=== PATIENT | female | born 1995 | race Caucasian/White ===

== ENCOUNTER 2016-05-13 19:46 | Emergency (ER) | payer OTHER ==
[2016-05-13] MEDS ORDERED: IBUPROFEN 200 MG TAB PO ONE (20:00)
[2016-05-13] MEDS ORDERED: IBUPROFEN 600 MG TAB PO ONE (20:02)
--- NOTE | 2016-05-13 20:02 | EDPHY ---
H & P Stated Complaint: R hand pain HPI/ROS: CHIEF COMPLAINT: Right hand injury HISTORY OF PRESENT ILLNESS: The patient is a 21 y/o female complaining of right hand pain secondary to a fall while dancing last night. She tripped and fell on her right hand and now complains of pain near her 4th and 5th knuckles of her right hand. She denies weakness or paresthesias or other injuries. She has not tried anything to decrease her pain or to manage the injury. She is otherwise healthy. REVIEW OF SYSTEMS: A ten point review of systems was performed and is negative with the exception of the items mentioned in the HPI. Source: Patient Exam Limitations: No limitations - Personal History LMP (Females 10-55): 1-7 Days Ago Current Tetanus/Diphtheria Vaccine: Yes Current Tetanus Diphtheria and Acellular Pertussis (TDAP): Yes - Medical/Surgical History PMH: PMH includes: 1. Heart murmur 2. Asthma Hx Asthma: Yes Hx Chronic Respiratory Disease: No Hx Diabetes: No Hx Cardiac Disease: Yes Hx Renal Disease: No Hx Cirrhosis: No Hx Alcoholism: No Hx HIV/AIDS: No Hx Splenectomy or Spleen Trauma: No Other PMH: AORTIC STENOSIS, asthma, psoriasis - Social History Smoking Status: Never smoked Additional Social History: [employer] student. Nonsmoker. - Physical Exam Exam: General Appearance: Alert. Vital signs reviewed. A focused examination was performed. Lungs: CTA Heart: RRR Skin: Warm and dry, no rashes on exposed skin, normal color. No lacerations or abrasions. Extremities: Tenderness and ecchymosis over right 4th and 5th MCP joints. Full flexion/extension of all digits on right. No wrist pain, FAROM right wrist. Sensation intact to LT over right hand. Pulse: 2+ radial pulse. Neurological: Alert and oriented. Moving all four extremities easily and equally. Psychiatric: Normal affect. Constitutional: Initial Vital Signs Temperature (C) 36.8 C 05/13/16 19:53 Heart Rate 85 05/13/16 19:53 Respiratory Rate 16 05/13/16 19:53 Blood Pressure 120/81 H 05/13/16 19:53 O2 Sat (%) 95 05/13/16 19:53 O2 Delivery Mode Room Air Allergies/Adverse Reactions: No Known Allergies Allergy (Unverified 05/13/16 19:53) Medical Decision Making ED Course/Re-evaluation: Study: Right hand x-ray Indication: Pain, trauma Results: Right hand x-ray was obtained. The results of the study are no fracture. The study was read by the radiologist, Dr. Root. I viewed the images myself on the PACS system. No evidence of fracture or dislocation on XRay. I do not recommend splinting. She has bruising over knuckles of right hands--I am diagnosing contusion and recommending ice and elevation along with OTC pain medicines. - Data Points Medications Given: Discontinued Medications Ibuprofen (Motrin) 600 mg PO EDNOW ONE Stop: 05/13/16 20:01 Last Admin: 05/13/16 20:00 Dose: 600 mg Departure - Departure Disposition: Home, Routine, Self-Care Clinical Impression: Hand contusion Qualifiers: Encounter type: initial encounter Laterality: right Qualified Code(s): S60.221A - Contusion of right hand, initial encounter Condition: Good Instructions: Hand Sprain (ED) Additional Instructions: 1. Apply ice to sore areas. 2. Use Tylenol and ibuprofen as needed for pain for the next 3-4 days. 3. Follow up with your primary care provider for symptoms not improved over the next week. 4. Return to the ED for severe pain, weakness, or numbness in your hand. Referrals: MISHA LUNDY [Other] - As per Instructions Report Scribed for: Lorraine Lara Report Scribed by: Colette Mendez Date of Report: 05/13/16 Time of Report: 20:09 Physician Review and Approval Statement: 05/16/16 12:36 Portions of this chart were entered by a spanish medical interpreter. I personally performed the history, medical decision making, and exam. I have reviewed the chart and agree with the documentation, as evidenced by my signature.
[2016-05-13 21:22] VITALS: BP 124/69; PULSE 75; RESP 20; TEMP 97.7; O2SAT 96
== END 2016-05-13 21:22 | disposition home or self-care (01) ==
DX: S60.221A Contusion of right hand, initial encounter (principal); J45.909 Unspecified asthma, uncomplicated; W01.0XXA Fall on same level from slipping, tripping and stumbling without subsequent striking against object, initial encounter

== ENCOUNTER 2016-11-16 14:08 | Emergency (ER) | payer OTHER ==
[2016-11-16 14:12] VITALS: BP 117/79; PULSE 98; RESP 18; TEMP 98.4; O2SAT 100
--- NOTE | 2016-11-16 14:17 | EDPHY ---
H & P Time Seen by Provider: 11/16/16 14:15 HPI/ROS: CHIEF COMPLAINT: left foot and ankle pain HISTORY OF PRESENT ILLNESS: 21-year-old female with prior history of left ankle sprain complaining of acute left foot, ankle, proximal fibula and tibia pain after she was dancing last night and rolled her foot. She is able to bear weight albeit with pain. Mild paresthesia to her left great toe. Intact skin. Positive ecchymosis. PHYSICAL EXAM (Prior to examination, patient consented to physical exam, hands were washed and my usual and customary physical exam procedures followed) 1) GENERAL: Well-developed, well-nourished, alert and oriented. Appears to be in no acute distress. 2) HEAD: Normocephalic 3) HEENT: Pupils equal, round, reactive to light bilaterally. 4) LUNGS: Breathing comfortably. 5) MUSCULOSKELETAL: Tender to palpation fibular head, lateral ankle, dorsal midfoot with noted ecchymosis to the dorsal midfoot. No deformity. Knee nontender. .5th MT nontender negative Knapp test, compartments soft 6) SKIN: intact. Positive ecchymosis. 7) VASCULAR: DP,PT pulses and cap refill present and brisk DIFFERENTIAL DIAGNOSIS: in no particular order including but not limited to fracture, sprain, compartment syndrome Procedure: Splint A Sean boot splint was applied by ER vibration technician. After application of the splint I returned and re-examined the patient. The splint was adequately immobilizing the joint and distal to the splint the patient's circulation and sensation were intact. Patient shows no signs of compartment syndrome. Was given orthopedic precautions. Smoking Status: Never smoked Constitutional: Initial Vital Signs Temperature (C) 36.9 C 11/16/16 14:11 Heart Rate 98 11/16/16 14:11 Respiratory Rate 18 11/16/16 14:11 Blood Pressure 117/79 11/16/16 14:11 O2 Sat (%) 100 11/16/16 14:11 O2 Delivery Mode Room Air Allergies/Adverse Reactions: No Known Allergies Allergy (Unverified 05/13/16 19:53) Home Medications: Medication Instructions Recorded NK [No Known Home Meds] 11/16/16 MDM/Departure - [facility] Imaging Results: Imaging Impressions Foot X-Ray 11/16/16 14:13 Impression: Negative. 2. Left Ankle, 3 views History: Rolled ankle last night dancing, pain Findings: No fracture, dislocation or arthritis is identified. Impression: Negative 3. Left Foot, 3 views History: Pain post fall last night Findings: No fracture or dislocation is identified. Impression: Negative. Ankle X-Ray 11/16/16 14:18 Impression: Negative. 2. Left Ankle, 3 views History: Rolled ankle last night dancing, pain Findings: No fracture, dislocation or arthritis is identified. Impression: Negative 3. Left Foot, 3 views History: Pain post fall last night Findings: No fracture or dislocation is identified. Impression: Negative. Tibia/Fibula X-Ray 11/16/16 14:18 Impression: Negative. 2. Left Ankle, 3 views History: Rolled ankle last night dancing, pain Findings: No fracture, dislocation or arthritis is identified. Impression: Negative 3. Left Foot, 3 views History: Pain post fall last night Findings: No fracture or dislocation is identified. Impression: Negative. Images reviewed by myself Imaging: I viewed and interpreted images myself ED Course/Re-evaluation: Re-evaluation with serial exams. Soft compartments. No evidence of neurovascular compromise. Usual and customary orthopedic precautions and instructions provided. Follow up with Orthopedics. She feels comfortable being discharged. Tylenol and Motrin for discomfort. - Depart Disposition: Home, Routine, Self-Care Clinical Impression: Left ankle sprain Qualifiers: Encounter type: initial encounter Involved ligament of ankle: other ligament Qualified Code(s): S93.492A - Sprain of other ligament of left ankle, initial encounter Sprain of left foot Qualifiers: Encounter type: initial encounter Qualified Code(s): S93.602A - Unspecified sprain of left foot, initial encounter Condition: Good Instructions: Ankle Sprain (ED), Foot Sprain (ED) Additional Instructions: Adult Pain & Fever Control: We recommend Acetaminophen (Tylenol) and Ibuprofen (Motrin,Advil) for pain and fever control. When fever is high or pain severe, both drugs can be used at the same time, but at different intervals. Please note the time differences. Your dose is: Acetaminophen 650mg every 4 to 6 hours Ibuprofen 600mg every 6 hours with food OR Note: do not take Acetaminophen with Hydrocodone (Vicodin, Lortab) or Oycodone (Percocet). These medications also contain Acetaminophen. No more than 3000mg of Acetaminophen should be taken in 24 hours (for an adult). Return to the ER immediately if you experience discoloration, have worsening pain, numbness, tingling, or any other symptoms that concern you. If you received x-rays in the emergency department today, be advised, that ligamentous , tendon, muscular, and other non-bony injury cannot be fully ruled out. Try to keep your affected extremity elevated above the level of your chest, and keep cold packs on the affected area, for the next 48 hours. Referrals: Mike Valdes MD [Medical Doctor] - 5-7 days, call for appt.
== END 2016-11-16 14:49 | disposition home or self-care (01) ==
DX: S93.492A Sprain of other ligament of left ankle, initial encounter (principal); S93.602A Unspecified sprain of left foot, initial encounter; X58.XXXA Exposure to other specified factors, initial encounter; Y99.8 Other external cause status; Y93.41 Activity, dancing
CPT/HCPCS: L4386

== ENCOUNTER 2016-12-15 10:05 | Emergency (ER) | payer OTHER ==
[2016-12-15 10:11] VITALS: RESP 18
[2016-12-15] MEDS ORDERED: ONDANSETRON 4 MG/2 ML VIAL IVP ONE (11:33)
[2016-12-15] MEDS ORDERED: NS 1,000 ML IV ONE (11:33)
[2016-12-15] MEDS ORDERED: predniSONE 20 MG TAB PO ONE (11:33)
--- NOTE | 2016-12-15 11:37 | EDPHY ---
H & P Stated Complaint: Cough, Chest Pressure, Nausea/Vomiting Source: Patient Exam Limitations: No limitations - Personal History LMP (Females 10-55): 8-14 Days Ago Current Tetanus Diphtheria and Acellular Pertussis (TDAP): Yes - Medical/Surgical History Hx Asthma: Yes Hx Chronic Respiratory Disease: No Hx Diabetes: No Hx Cardiac Disease: Yes Hx Renal Disease: No Hx Cirrhosis: No Hx Alcoholism: No Hx HIV/AIDS: No Hx Splenectomy or Spleen Trauma: No Other PMH: AORTIC STENOSIS, asthma, psoriasis - Social History Smoking Status: Never smoked Time Seen by Provider: 12/15/16 11:34 HPI/ROS: HPI: This is a 21 female presents with Chief Complaint: Cough Location: Chest Quality: Cough Duration: 2-4 days Signs and Symptoms: No fever, no chills, + fatigue, + productive cough, + nausea, no vomiting, no abdominal pain, no dysuria, no headache, no sore throat , no neck stiffness, no wheezing Timing: Daily Severity: Moderate Context: Patient presents with complaints of productive cough green sputum over the last 2-4 days accompanied by fatigue and nausea. She has a history of aortic stenosis followed by her foot roentgenologist [facility]. She denies chest pain/shortness of breath/wheezing. + exercise-induced asthma. She denies any wheezing/lower extremity edema. Modifying Factors: Took Tylenol this morning Comment: ROS: see HPI Constitutional: No fever, no chills, no weight loss Eyes: No blurred vision Respiratory: No shortness of breath, + cough Cardiovascular: No chest pain Gastrointestinal: No nausea, no vomiting, no diarrhea Genitourinary: No dysuria Extremities: No myalgias Neurologic: No weakness, no numbness Skin: No rashes Hematologic: No bruising, no bleeding MEDICAL/SURGICAL/SOCIAL HISTORY: Medical history: Aortic stenosis Surgical history: Tonsillectomy and adenoidectomy Social history: College student, originally from [facility] CONSTITUTIONAL: Young Adult pleasant white female, awake and alert, no obvious distress HEENT: Atraumatic and normocephalic, PERRL, EOMI. Tympanic membranes clear. Oropharynx clear, no exudate and moist pink mucosa. Airway patent. No lymphadenopathy. No meningismus. Cardiovascular: Normal S1/S2, regular rate, regular rhythm, with systolic murmur , no rub or gallop. PULMONARY/CHEST: Symmetrical and nontender. Clear to auscultation bilaterally. Good air movement. No accessory muscle usage. ABDOMEN: Soft, nondistended, nontender, no rebound, no guarding, no peritoneal signs, no masses or organomegaly. No CVAT. EXTREMITIES: 2/2 pulses, no deformities, no clubbing, no cyanosis or edema. NEUROLOGICAL: no focal neuro deficits. GCS 15. SKIN: Warm and dry, no erythema. no rash. Good capillary refill. (Ashley Whitlock) Constitutional: Initial Vital Signs Temperature (C) 36.7 C 12/15/16 10:09 Heart Rate 92 12/15/16 10:09 Respiratory Rate 18 12/15/16 10:09 Blood Pressure 140/100 H 12/15/16 10:09 O2 Sat (%) 98 12/15/16 10:09 O2 Delivery Mode Room Air Allergies/Adverse Reactions: No Known Allergies Allergy (Unverified 05/13/16 19:53) Home Medications: Medication Instructions Recorded Ondansetron Odt [Zofran Odt 4 mg 4 mg PO Q4 PRN #12 tab 12/15/16 (*)] predniSONE [predniSONE TAPER] 10 mg PO DAILY 6 Days ea 12/15/16 Medical Decision Making ED Course/Re-evaluation: Chest x-ray, IV fluids, oral medications ordered Afebrile, no signs of hypoxia/wheezing/asthma exacerbation Given 1 L normal saline, IV Zofran, p.o. prednisone 60 mg Low risk criteria for pulmonary embolism Chest x-ray my read shows no erick opacity. No signs of SIRS or sepsis. No indication for antibiotics (Ashley Whitlock) Differential Diagnosis: Shortness of breath including but not limited to pulmonary infectious process, pulmonary embolus and bronchitis. (Ashley Whitlock) Other Provider: The patient was evaluated and managed by the Physician It Project Manager/ Nurse Practitioner. My co-signature indicates that I have reviewed this chart and I agree with the findings and plan of care as documented. I am the secondary supervising physician. (Adriana Perez) - Data Points Medications Given: Discontinued Medications Sodium Chloride (Ns) 1,000 mls @ 0 mls/hr IV EDNOW ONE; Wide Open PRN Reason: Protocol Stop: 12/15/16 11:34 Last Admin: 12/15/16 11:38 Dose: 1,000 mls Ondansetron HCl (Zofran) 4 mg IVP EDNOW ONE Stop: 12/15/16 11:34 Last Admin: 12/15/16 11:38 Dose: 4 mg Prednisone (Prednisone) 60 mg PO EDNOW ONE Stop: 12/15/16 11:34 Last Admin: 12/15/16 11:37 Dose: 60 mg Departure - Departure Disposition: Home, Routine, Self-Care Clinical Impression: Bronchitis Condition: Good Instructions: Acute Bronchitis (ED) Additional Instructions: Please complete steroid taper as directed, rest as much as possible, drink plenty of fluids to prevent dehydration, take Tylenol and/or ibuprofen as needed for pain/headache/fever until feeling better. If symptoms persist greater than 3 days or rapidly worsen, please follow-up with primary care provider for re-evaluation. Referrals: MISHA MARTINEZ [Other] - As per Instructions Stand Alone Forms: Work Excuse Prescriptions: Ondansetron Odt [Zofran Odt 4 mg (*)] 4 mg PO Q4 PRN #12 tab PRN Reason: Nausea/Vomiting, Use 1st predniSONE [predniSONE TAPER] 10 mg PO DAILY 6 Days ea
[2016-12-15 12:02] VITALS: BP 117/85; PULSE 77; TEMP 98.3; O2SAT 97
== END 2016-12-15 13:03 | disposition home or self-care (01) ==
PROC: 3E0337Z Introduction of Electrolytic and Water Balance Substance into Peripheral Vein, Percutaneous Approach (ICD-10-PCS; principal; 2016-12-15)
DX: J45.909 Unspecified asthma, uncomplicated (principal); E86.9 Volume depletion, unspecified
CPT/HCPCS: 96374; J2405

== ENCOUNTER 2017-02-11 10:53 | Emergency (ER) | payer OTHER ==
--- NOTE | 2017-02-11 13:46 | CPEKG ---
Heart Rate: 94 RR Interval: 638 P-R Interval: 152 QRSD Interval: 80 QT Interval: 340 QTC Interval: 426 P [place]: 69 QRS [place]: 78 T Wave [place]: 70 EKG Severity - ABNORMAL ECG - EKG Impression: SINUS RHYTHM EKG Impression: LEFT ATRIAL ABNORMALITY EKG Impression: NONSPECIFIC T ABNORMALITIES, ANTERIOR LEADS Electronically Signed By: Murali Valera 11-Feb-2017 14:43:35
--- NOTE | 2017-02-11 14:00 | EDPHY ---
HPI/HX/ROS/PE/MDM Narrative: CHIEF COMPLAINT: HISTORY OF PRESENT ILLNESS: [No fever, chills, chest pain, shortness of breath, palpitations, vomiting, diarrhea, urinary complaints, headache, lightheadedness. ] REVIEW OF SYSTEMS: Aside from elements discussed in the HPI, a comprehensive 10-point review of systems was reviewed and is negative. PAST MEDICAL HISTORY: Aortic stenosis, asthma, psoriasis Prior medical records reviewed including ED visit 12/15/16 for cough. SOCIAL HISTORY: VITAL SIGNS: Reviewed by me GENERAL: Well-developed, well-nourished, resting comfortably in no respiratory distress. HEENT: Atraumatic. Eyes: No icterus, no injection. Mouth: moist mucous membranes. No erythema or lesions. Neck: supple with no adenopathy. LUNGS: Clear to auscultation bilaterally, no wheezes, rhonchi or rales. CARDIAC: Regular rate and rhythm, no rubs, murmurs or gallops. ABDOMEN: Soft, nontender, nondistended, bowel sounds normal. BACK: No CVA tenderness. EXTREMITIES: No trauma. No edema. Range of motion is normal throughout. NEURO: Alert and oriented, grossly nonfocal. SKIN: Warm and dry, no rash. PSYCHIATRIC: Normal mentation, no agitation. Portions of this note were transcribed by a medical chief technician. I personally performed a history, physical exam, medical decision making, and confirmed accuracy of information the transcribed note. General Initial Vital Signs: Initial Vital Signs Temperature (C) 36 C 02/11/17 11:02 Heart Rate 87 02/11/17 11:02 Respiratory Rate 18 02/11/17 11:02 Blood Pressure 104/74 02/11/17 11:02 O2 Sat (%) 97 02/11/17 11:02 O2 Delivery Mode Room Air Allergies/Adverse Reactions: No Known Allergies Allergy (Verified 02/11/17 11:01) Home Medications: Medication Instructions Recorded NK [No Known Home Meds] 02/11/17 Departure - Departure Referrals: NONE *PRIMARY CARE P,. [Primary Care Provider] - As per Instructions
--- NOTE | 2017-02-11 14:18 | EDPHY ---
H & P Time Seen by Provider: 02/11/17 13:57 HPI/ROS: Chief complaint. Chest pain HPI. Patient is a 21-year-old female with congenital aortic stenosis. She has had multiple open heart surgeries. She had an unsuccessful balloon angioplasty at age 18. She is told she needs a valve replacement prior to . For the last 2 months she has had sharp pain and then chest tightness with increased frequency. She describes tightness in the left anterior chest and some slight shortness of breath with sharp pain. She also describes another component of 2-3 seconds of electrical sensation and then the tightness lasting 1-2 hours. She awoke with symptoms this morning. She does not note any exacerbating factors and it can occur at night, while studying as well as being active. She does note that stress seems to make it worse. Her last echocardiogram was 1 year ago. She has a color corrector in [place] who recommended she come in for evaluation. She denies any unusual leg pain or swelling. No fever or cough. ROS Constitutional. no fever/chills, no weakness Eyes. no problems with vision ENT. no sore throat, no nasal drainage Cardiovascular. Chest pain Respiratory. Shortness of breath Abdominal. no abdominal pain, no nausea/vomiting, no diarrhea . no problems urinating MS. no calf pain/swelling, no neck/back pain, no joint pain Skin. no rash Lymph. no swollen glands Neuro. 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 Multiple cardiac surgeries Social History: Single, [employer] student, nonsmoker, no alcohol Smoking Status: Never smoked Physical Exam: General Appearance: Alert pleasant well-developed female mild distress vital signs are stable Eyes: Pupils equal and round no pallor or injection. ENT, Mouth: Mucous membranes are moist. Respiratory: There are no retractions, lungs are clear to auscultation. Cardiovascular: Regular rate and rhythm with 3/6 systolic decrescendo Gastrointestinal: Abdomen is soft and nontender, no masses, bowel sounds normal. Neurological: Awake and alert, sensory and motor exams grossly normal. Skin: Warm and dry, no rashes. Musculoskeletal: Neck is supple nontender. Extremities symmetrical, full range of motion. Psychiatric: Patient is oriented X 3, there is no agitation. Constitutional: Initial Vital Signs Temperature (C) 36 C 02/11/17 11:02 Heart Rate 87 02/11/17 11:02 Respiratory Rate 18 02/11/17 11:02 Blood Pressure 104/74 02/11/17 11:02 O2 Sat (%) 97 02/11/17 11:02 O2 Delivery Mode Room Air Allergies/Adverse Reactions: No Known Allergies Allergy (Verified 02/11/17 11:01) Home Medications: Medication Instructions Recorded NK [No Known Home Meds] 02/11/17 Medical Decision Making - Diagnostics EKG Interpretation: EKG interpreted by me shows normal sinus rhythm with normal interval and axis. QRS is normal. Inverted T-waves V2 through V4. No significant ST elevation or depression. No arrhythmia. The rate is 95 Imaging Results: Imaging Impressions Chest X-Ray 02/11/17 15:10 Impression: No evidence for acute cardiopulmonary abnormality. Chest x-ray interpreted by me is normal Echocardiogram reviewed with Dr. Macdonald is nonacute. Mild aortic insufficiency. No evidence for dissection Procedures: IV normal saline, monitor ED Course/Re-evaluation: Re-evaluation at a 4:40 p.m.. Patient is stable. The patient and I discussed imaging lab EKG findings. Dr. Macdonald had seen the patient in the emergency department and both read her echocardiogram and discussed the findings with her. He would like to see her in the office in the next couple days. Patient feels comfortable with this plan. Differential Diagnosis: Considered aortic dissection, acute coronary syndrome, pulmonary embolus, pneumonia - Data Points Laboratory Results: Laboratory Results 02/11/17 14:47 02/11/17 14:47 02/11/17 02/11/17 02/11/17 14:47 14:47 14:47 WBC 12.72 10^3/uL H 10^3/uL (3.80-9.50) RBC 4.86 10^6/uL 10^6/uL (4.18-5.33) Hgb 15.1 g/dL g/dL (12.6-16.3) Hct 42.6 % % (38.0-47.0) MCV 87.7 fL fL (81.5-99.8) MCH 31.1 pg pg (27.9-34.1) MCHC 35.4 g/dL g/dL (32.4-36.7) RDW 11.9 % % (11.5-15.2) Plt Count 302 10^3/uL 10^3/uL (150-400) MPV 11.1 fL fL (8.7-11.7) Neut % (Auto) 71.7 % % (39.3-74.2) Lymph % (Auto) 21.1 % % (15.0-45.0) [place] % (Auto) 5.9 % % (4.5-13.0) Eos % (Auto) 0.5 % L % (0.6-7.6) Baso % (Auto) 0.4 % % (0.3-1.7) Nucleat RBC Rel Count 0.0 % % (0.0-0.2) Absolute Neuts (auto) 9.13 10^3/uL H 10^3/uL (1.70-6.50) Absolute Lymphs (auto) 2.68 10^3/uL 10^3/uL (1.00-3.00) Absolute Monos (auto) 0.75 10^3/uL 10^3/uL (0.30-0.80) Absolute Eos (auto) 0.06 10^3/uL 10^3/uL (0.03-0.40) Absolute Basos (auto) 0.05 10^3/uL 10^3/uL (0.02-0.10) Absolute Nucleated RBC 0.00 10^3/uL 10^3/uL (0-0.01) Immature Gran % 0.4 % % (0.0-1.1) Immature Gran # 0.05 10^3/uL 10^3/uL (0.00-0.10) D-Dimer < 0.27 ug/mLFEU ug/mLFEU (0.00-0.50) Sodium 144 mEq/L mEq/L (134-144) Potassium 3.8 mEq/L mEq/L (3.5-5.2) Chloride 104 mEq/L mEq/L (97-110) Carbon Dioxide 23 mEq/l mEq/l (22-31) Anion Gap 17 mEq/L H mEq/L (8-16) BUN 14 mg/dL mg/dL (7-23) Creatinine 0.6 mg/dL mg/dL (0.6-1.0) Estimated GFR > 60 Glucose 92 mg/dL mg/dL (70-100) Calcium 9.8 mg/dL mg/dL (8.5-10.4) Troponin I < 0.012 ng/mL ng/mL (0.000-0.034) Amylase Lipase 02/11/17 14:42 WBC RBC Hgb Hct MCV MCH MCHC RDW Plt Count MPV Neut % (Auto) Lymph % (Auto) [place] % (Auto) Eos % (Auto) Baso % (Auto) Nucleat RBC Rel Count Absolute Neuts (auto) Absolute Lymphs (auto) Absolute Monos (auto) Absolute Eos (auto) Absolute Basos (auto) Absolute Nucleated RBC Immature Gran % Immature Gran # D-Dimer Sodium Potassium Chloride Carbon Dioxide Anion Gap BUN Creatinine Estimated GFR Glucose Calcium Troponin I Amylase 55 IU/L IU/L (30-110) Lipase 99 IU/L IU/L (23-300) Departure - Departure Disposition: Home, Routine, Self-Care Clinical Impression: Chest pain Qualifiers: Chest pain type: unspecified Qualified Code(s): R07.9 - Chest pain, unspecified Condition: Good Instructions: Chest Pain (ED) Additional Instructions: Normal activity. Return for worsening symptoms. Call Dr. Macdonald office tomorrow to arrange follow-up appointment. Referrals: NONE *PRIMARY CARE P,. [Primary Care Provider] - As per Instructions Sylvester Macdonald MD [Medical Doctor] - 1-2 days without fail
[2017-02-11 15:08] LABS: % IMMATURE GRANULYOCYTES 0.4 % (0.0-1.1); ABSOLUTE IMMATURE GRANULOCYTES 0.05 10^3/uL (0.00-0.10); ADD DIFF? NO; ADD MORPH? NO; ADD SCAN? NO; ATYPICAL LYMPHOCYTE FLAG 10 (0-99); FRAGMENT RBC FLAG 0 (0-99); HEMATOCRIT 42.6 % (38.0-47.0); HEMOGLOBIN 15.1 g/dL (12.6-16.3); LEFT SHIFT FLG 0 (0-99); LIPEMIA HEMOLYSIS FLAG 90 (0-99); MEAN CELL HEMOGLOBIN 31.1 pg (27.9-34.1); MEAN CELL HEMOGLOBIN CONCENTR. 35.4 g/dL (32.4-36.7); MEAN CELL VOLUME 87.7 fL (81.5-99.8); MEAN PLATELET VOLUME 11.1 fL (8.7-11.7); PLATELET CLUMPS FLAG 10 (0-99); PLATELET COUNT 302 10^3/uL (150-400); RED BLOOD CELL COUNT 4.86 10^6/uL (4.18-5.33); RED CELL DISTRIBUTION WIDTH 11.9 % (11.5-15.2)
[2017-02-11 15:17] LABS: ANION GAP 17 mEq/L (8-16); CALCIUM 9.8 mg/dL (8.5-10.4); CARBON DIOXIDE 23 mEq/l (22-31); CHLORIDE 104 mEq/L (97-110); CREATININE 0.6 mg/dL (0.6-1.0); GLOMERULAR FILTRATION RATE > 60; GLUCOSE 92 mg/dL (70-100); POTASSIUM 3.8 mEq/L (3.5-5.2); SODIUM 144 mEq/L (134-144)
[2017-02-11 15:28] LABS: TROPONIN I < 0.012 ng/mL (0.000-0.034)
[2017-02-11 15:32] LABS: AMYLASE 55 IU/L (30-110)
--- NOTE | 2017-02-11 17:02 | GCON ---
[f rep st] CONSULTATION CARDIOVASCULAR CONSULTATION CHIEF COMPLAINT: Chest pain. HISTORY OF PRESENT ILLNESS: The patient is a very healthy woman who has known coarctation of the aor ta. She has known bicuspid aortic valve. She has known aortic stenosis. Her history includes at 2 days old, she had a repaired bicuspid aortic valve and coarctation repair. At 10 days old, she had a plication of the diaphragm. At 18 years old, she had a balloon valvuloplasty of the aortic valve. She comes in today because she has been getting increasing episodes of sharp discomfort and chest tig htness on and off when she exerts herself and when she does not exert herself. She has been getting these her whole life, it just seems to be more frequent. She also notices that she is more short of breath going up 10 stairs, more short of breath walking a mile across campus at the [facility]. She Has never had high blood pressure. 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 She does not have fever, chills, or cough. No headaches. No focal neurologic deficits. No seizure disorders. No hemoptysis. She has not had hypertension. CARDIAC RISK FACTORS: Negative for hyperlipidemia, diabetes mellitus, hyperuricemia, smoking, obesit y, family history of premature coronary disease or known coronary artery disease. She sees the Pediatric Cardiology Service at [facility] in [place] and they have taken care of her since she was born. She has just seen her talent development consultant on the recent side of last year, and she is switching to the Adult Cardiology Service there from the Pediatric Cardiology [facility]. Her talent development consultant is Dr. Alber Kiran. Dr. Kiran's phone number in [place] is [phone] . She does not have rigors. She does not have new rashes. She does not have hot swollen joints. She does not have headaches. She has not had trouble with cranial nerves. No issues with blurred vision , trouble with speech. Her long-term history is that the doctors in [place] do not want her to do extensive physical e xercise. She cannot lift weights. She can go on a treadmill or bicycle for a while at a relatively easy pace, but if she presses it too much she will get decreased vision and lose her vision and get l ightheaded and dizzy and they do not want this to happen to her. Her menses are regular at this point in time. She has no sputum production, pleuritic chest pain, hemoptysis. She has no blood loss anywhere. She is not having right upper quadrant pain. SURGICAL HISTORY: Is as noted, let us go down through it again. At day 3, she had a repair of a bic uspid aortic valve. She had a coarctation repaired. At 10 days, she had a plication of the diaphragm which had been frozen. At 18 years old, she had a balloon valvuloplasty of her aortic valve. She has been told that she will need an aortic valve procedure before she has and she is no t interested in that issue right this minute. REVIEW OF SYSTEMS: A 10-point review of systems negative except as noted above and in the record. SOCIAL HISTORY: She was born in [place]. She is here for 2 more years, her branden and senior adis r as a student at the [employer] where she is studying speech, hearing, and language scie [employer] and then she would like to also do a 2 years master's degree program here. Her home is in [place] and her doctors are at the [facility]. She does not smoke. She does not drink significant amounts of alcohol. ALLERGIES: None. MEDICATIONS: None. PHYSICAL EXAMINATION: VITAL SIGNS: Blood pressure in her right arm is 116/69, her left leg is 112/6 3, her right leg is 121/56, her left arm is 113/71. She is resting comfortably in hospital bed in e emergency room. Respiratory rate is 12. She is afebrile. GENERAL: She is very cooperative. ARLYN NT: Pupils equal and reactive. Mucous membranes and mouth moist. NECK: Supple. CARDIOVASCULAR: PMI is 5th intercostal space and midclavicular line. She has an S1, S2. Harsh 3/6 s ystolic ejection murmur up into the neck that can be heard in the neck and there is a delayed carotid upstroke. PULMONARY: She has no S3-S4. No rubs. PULMONARY: Reveals rhonchi. No rales, wheezing , or dullness. CVA: No tenderness. ABDOMEN: Soft, nontender, without masses. EXTREMITIES: No ed james, inflammation or ulceration. NEUROLOGIC: Cranial nerves 2-12 grossly normal. Motor and sensory intact. The blood pressure in all 4 extremities is attached. There is no delayed pulse. EKG shows diffuse T -wave changes and a tachycardia. Echocardiographic study, which I have looked at, shows question of dilatation of the right coronary a rtery, but mild aortic insufficiency, aortic stenosis with a mean gradient of 55, PEEK gradient in 70 s. The aorta itself looks okay. ASSESSMENT AND PLAN: 1. Coarctation. 2. Chest pain. 3. Shortness of breath. These are very interesting issues for this young woman. To workup her shortness of breath, she is ge tting a chest x-ray which is pending. She does not have any sputum production. There is nothing maurice t sounds like an infectious process or tumor in terms of her shortness of breath. She does not have a history of asthma. It may well be cardiovascular related and it may well be related to her aortic stenosis which is sign ificant by exam. She has a negative D-dimer. There is nothing to suggest pulmonary embolic disease for the shortness of breath. For her chest discomfort, I am concerned about her. She has very significant aortic stenosis. She w orks with the physicians at the [facility] in [place] and I have placed a call to Dr. Alber Kiran at [phone]. I have called several times and left a message for him. At this time, I do not think there is anything acute, unless her chest x-ray comes back and shows pneumothora x or some other major issue that makes her need to stay in the hospital overnight. She would like to follow up with us in clinic and I think that is reasonable. I do not like her chest tightness. I t hink it would be good to see how she does and get her to see the surgical service. Also, I think the Adult Congenital Service at the [place] would be helpful, unless she prefers to continue to work with [place] and is planning to be out there soon. I am not going to order an MRI today of her aorta. I do not think we need to get that right away, but I think it is important to do 1. She thi nks she did 1 within a year, but she is not sure of that in [place], and if she is going to get her care at [place] I would rather do her studies [facility] I have answered all her questions. If her chest x-ray comes back and is unremarkable, and she did santamaria ve some gastrointestinal complaints and we are checking an amylase and lipase. If nothing is showing up on those studies, she is going to go home and follow up in the office. All her questions have been answered. I will keep trying to get in touch with the doctor in [place]. I have discussed it with the ER. /[id number]/MODL
[2017-02-11 17:19] VITALS: BP 112/65; PULSE 85; RESP 16; TEMP 97.7; O2SAT 99
--- NOTE | 2017-02-15 14:38 | ECHO ---
[email or web address] [address] [address] Main: [phone] Fax: Transthoracic Echocardiogram Name: SUMA ESPINOZA MR#: [id number] Study Date: 02/11/2017 Study Time: 03:06 PM Date of : 1995 Age: 21 year(s) Height: 175.3 cm (69 in.) Weight: 68.04 kg (150 lb.) BSA: 1.83 m2 Gender: Female Examination: Echo Indication: H/O Bicuspid AV, balloon angioplasty and coarctation repair Image Quality: Adequate Contrast: Requested by: Murali Valera BP: 116 mmHg/69 mmHg Heart Rate: Rhythm: Normal sinus rhythm Indication: H/O Bicuspid AV, balloon angioplasty and coarctation repair Procedure Staff Weighbridge Operator: Jill Carrillo Physician: Sylvester Macdonald Requesting Provider: Conclusions: Normal size left ventricle. Normal global systolic LV function. EF is 64 %. No regional wall motion abnormality. Normal RV function. The left atrium is normal in size. There is no significant mitral valve regurgitation. Mean aortic valve gradient 52. Severe aortic stenosis. Dilated right coronary artery noted.. Mild tricuspid regurgitation is present. The pulmonic valve is normal in appearance and function. S/P Coarctation repair as a child. Peak gradient across descending aorta 14mmHg.. Normal size aortic root measuring 2.9 cm. Normal size ascending aorta measuring 2.3 cm. Normal size aortic arch measuring 3.0 cm. Normal size and course of the IVC. No pericardial effusion. I have discussed the results with the pt and w her own senior international tax manager at [facility] who specializes in congenital heart disease. Measurements: Chambers Valvular Assessment AV/MV Valvular Assessment TV/PV Normal Normal Normal Name Value Range Name Value Range Name Value Range Ao Bhumika (MM): 2.9 cm (2.2 cm-3.7 AV Vmax: 4.10 m/s (1 m/s-1.7 TR Vmax: 3.04 mm/s ( - ) cm) m/s) TR PGmax: 37 mmHg ( - ) IVSd (2D): 1.0 cm (0.6 cm-1.1 AV maxP mmHg ( - ) syst. PAP: 42 mmHg ( - ) cm) AV meanP mmHg ( - ) PV Vmax: 0.90 m/s (0.6 m/s-0.9 m/s) Patient: SUMA ESPINOZA Study Date: 02/11/2017 Page 1 of 2 03:06 PM LVDd (2D): 3.8 cm (3.9 cm-5.3 LVOT Vmax: 1.15 m/s (0.7 m/s-1.1 PV PGmax: 3 mmHg ( - ) cm) m/s) LVDs (2D): 2.2 cm (2.1 cm-4 FIONA (Vmax): 1.0 cm2 ( - ) cm) FIONA (VTI): 1.1 cm ( - ) LVPWd (2D): 1.0 cm ( - ) MV E Vmax: 0.71 m/s ( - ) LVOTd 2.1 cm 2.1 cm mm MV A Vmax: 0.75 m/s ( - ) LVEF (BP): 64 % (>=55 %) MV E/A: 0.95 ( - ) RVDd(2D): 3.0 cm (1.9 cm-3.8 cmmm) Continued Measurements: Chambers Valvular Assessment AV/MV Valvular Assessment TV/PV Name Value Name Value Name Value LADs Lon.2 cm MV DecTime: 180 m/s CVP (est.): 5 mmHg LA Area: 10.4 cm2 LA Volume: 19 ml LA Volume Index: 10.4 ml/m2 Additional Vessels Name Value Ao Ascendin.3 cm Ao Arch: 3.0 cm Findings: Left Ventricle: Normal size left ventricle. Normal global systolic LV function. EF is 64 %. No regional wall motion abnormality. Right Ventricle: Normal size right ventricle. Normal RV function. Left Atrium: The left atrium is normal in size. Right Atrium: The right atrium is normal in size. Mitral Valve: The mitral valve is normal in appearance. There is no significant mitral valve regurgitation. No mitral stenosis is present. Aortic Valve: Bicuspid aortic valve. Mild aortic valve regurgitation is present. Mean aortic valve gradient 52. Severe aortic stenosis. Dilated right coronary artery noted.. Tricuspid Valve: The tricuspid valve appears normal. Mild tricuspid regurgitation is present. Right ventricular systolic pressure measures 42mmHg. The pulmonary artery pressure is mild to moderately increased. Pulmonic Valve: The pulmonic valve is normal in appearance and function. Aorta: S/P Coarctation repair as a child. Peak gradient across descending aorta 14mmHg.. Normal size aortic root measuring 2.9 cm. Normal size ascending aorta measuring 2.3 cm. Normal size aortic arch measuring 3.0 cm. IVC: Normal size and course of the IVC. Pericardium: No pericardial effusion. (No Signature Object) Patient: SUMA ESPINOZA Study Date: 02/11/2017 Page 2 of 2 03:06 PM [id number]
== END 2017-02-11 17:19 | disposition home or self-care (01) ==
DX: R07.9 Chest pain, unspecified (principal)

== ENCOUNTER 2017-12-24 10:21 | Emergency (ER) | payer BC, OTHER ==
--- NOTE | 2017-12-24 10:31 | EDPHY ---
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 asthma, psoriasis, hemachromatosis - Social History Smoking Status: Never smoked Constitutional: Initial Vital Signs Temperature (C) 36.8 C 12/24/17 10:25 Heart Rate 113 H 12/24/17 10:25 Respiratory Rate 16 12/24/17 10:25 Blood Pressure 120/84 H 12/24/17 10:25 O2 Sat (%) 94 12/24/17 10:25 O2 Delivery Mode Room Air Allergies/Adverse Reactions: No Known Allergies Allergy (Verified 12/24/17 10:25) Home Medications: Medication Instructions Recorded Lidocaine 2% Viscous 5 ml PO Q4-6PRN PRN #100 ml 12/24/17 Sucralfate [Carafate 1gm/10ml Oral 1 gm PO QID #240 ml 12/24/17 Liquid (*)] Medical Decision Making ED Course/Re-evaluation: CHIEF COMPLAINT: Esophageal pain HISTORY OF PRESENT ILLNESS: This patient is a 22 year old female with history of congenital cardiac abnormalities s/p surgical correction. She presents today with esophageal discomfort after eating hot food. Two days ago, she had a meatball sandwich at [facility]. Her first bite was very hot and she experienced discomfort while swallowing. Following this she became very dizzy, warm, and nauseous. She did not have a syncopal event. Since that time, she has had midsternal pain which persists. Her pain is increased with swallowing and deep inspiration. Today, her discomfort has begun to spread towards the left but is still primarily midsternal. She reports it feels almost as if there is a foreign body in her esophagus. She denies fever, shortness of breath, nausea, vomiting, weakness, lightheadedness, or other worsening of condition. REVIEW OF SYSTEMS: A comprehensive 10 system review of systems is otherwise negative aside from elements mentioned in the history of present illness and medical decision making. PHYSICAL EXAM: HR, BP, O2 Sat, RR. Temp noted General Appearance: Alert, well hydrated, appropriate, and non-toxic appearing. Head: Atraumatic without scalp tenderness or obvious injury Eyes: Pupils equal, round, reactive to light and accommodation, EOMI, no trauma , no injection. Ears: Clear bilaterally, no perforation, normal landmarks Nose: Atraumatic, no rhinorrhea, clear. Throat: There is no erythema or exudates, no lesions, normal tonsils, mucus membranes moist. Neck: Supple, nontender, no lymphadenopathy. Respiratory: No retractions, no distress, no wheezes, and no accessory muscle use. Lungs are clear to auscultation bilaterally. Cardiovascular: Regular rate and rhythm, no murmurs, rubs, or gallops. Good capillary refill all extremities. Gastrointestinal: Abdomen is soft, nontender, non-distended. Musculoskeletal: Normal active ROM of all extremities, atraumatic. Neurological: Alert, appropriate, and interactive. Nonfocal neuro exam. Skin: No rashes, good turgor, no nodules on palpation. Past medical history: Aortic stenosis. Coarctation of aorta. Asthma. Psoriasis. Hemochromatosis. Past surgical history: Congenital cardiac abnormalities s/p surgical correction. Family history: Noncontributory. Social history: Student at [employer]. Originally from [place]. Does not abuse tobacco, drugs, or alcohol. DIAGNOSTICS/PROCEDURES/CRITICAL CARE TIME: The 12 lead EKG was interpreted by myself. See hard copy and/or "tracemaster" electronic copy for interpretation. Sinus rhythm. DIFFERENTIAL DIAGNOSIS: The differential diagnosis for the patient's chest pain included but was not limited to esophageal ulceration, esophageal irritation, myocardial ischemia, pulmonary embolus, chest wall pain, pleural inflammation, and pulmonary infectious causes. MEDICAL DECISION MAKIN22 y/o female presents with 2 days history of esophageal pain after eating a hot meatball sandwich. i have very low suspicion for cardiac etiology of symptoms as there is a clear preceding event which likely caused some esophageal irritation. Plan for GI cocktail. Plan for EKG. EKG shows sinus rhythm, no evidence of ischemia. Reassessed patient. She has had some relief with GI cocktail but her discomfort persists somewhat. Symptoms are consistent with esophageal ulceration / irritation. The patient's mother in [place] is concerned for cardiac related issues given the patients congenital heart related surgical history. I see no indication for this at this time. Plan to consult with GI specialist cushion former regarding possible upper endoscopy. 12:[address] Doyle, plate painter. He states at this point the risk far outweighs the benefit for upper endoscopy. Symptoms will likely resolve spontaneously. She will follow up with GI in 3 days for symptoms unresolved. Reassessed patient. Plan to discharge home in good condition with prescription for Carafate and viscous lidocaine for symptom relief. Discussed followup and return precautions. She is comfortable with this plan. - Data Points Medications Given: Discontinued Medications Al Hydroxide/Mg Hydroxide (Maalox Susp) 30 ml PO ONCE ONE Stop: 12/24/17 10:40 Last Admin: 12/24/17 10:43 Dose: 30 ml Hyoscyamine Sulfate (Levsin, Hyomax-Sl) 0.25 mg PO ONCE ONE Stop: 12/24/17 10:40 Last Admin: 12/24/17 10:43 Dose: 0.25 mg Lidocaine (Lidocaine 2% Viscous) 15 ml PO ONCE ONE Stop: 12/24/17 10:40 Last Admin: 12/24/17 10:43 Dose: 15 ml Sucralfate (Carafate Suspension) 1 gm PO EDNOW ONE Stop: 12/24/17 11:12 Last Admin: 12/24/17 11:28 Dose: 1 gm Departure - Departure Disposition: Home, Routine, Self-Care Clinical Impression: Erosive esophagitis Condition: Good Instructions: Corrosive Esophagitis (ED) Additional Instructions: 1. Take Carafate as prescribed. 2. Take viscous lidocaine as prescribed. 3. Follow up with gastroenterology in 3 days for symptoms unresolved. 4. Return to the emergency department for worsening pain, difficulty breathing or swallowing, or other worsening of condition. Referrals: MISHA LUNDY [Other] - As per Instructions Pop Doyle MD, FACG [Medical Doctor] - As per Instructions Stand Alone Forms: School Excuse Prescriptions: Lidocaine 2% Viscous 5 ml PO Q4-6PRN PRN #100 ml PRN Reason: Pain, Mild Sucralfate [Carafate 1gm/10ml Oral Liquid (*)] 1 gm PO QID #240 ml Report Scribed for: Jason Oneal Report Scribed by: Rosa M Escobar Date of Report: 12/24/17 Time of Report: 12:26
[2017-12-24] MEDS ORDERED: MAG HYDROX/AL HYDROX/SIMETH 30 ML UDCUP PO ONE (10:39)
[2017-12-24] MEDS ORDERED: LIDOCAINE 2% VISCOUS 15 ML UDCUP PO ONE (10:39)
[2017-12-24] MEDS ORDERED: HYOSCYAMINE SULFATE 0.125 MG TAB PO ONE (10:39)
[2017-12-24] MEDS ORDERED: SUCRALFATE 1 GM/10 ML UDCUP PO ONE (11:11)
[2017-12-24 12:04] VITALS: BP 117/68
== END 2017-12-24 12:32 | disposition home or self-care (01) ==
DX: K20.8 Other esophagitis (principal); J45.909 Unspecified asthma, uncomplicated; I35.0 Nonrheumatic aortic (valve) stenosis; Q25.1 Coarctation of aorta; Z87.798 Personal history of other (corrected) congenital malformations

== ENCOUNTER → 2017-12-25 | Outpatient (CLI) | payer BC ==
[2017-12-25 11:57] LABS: PLATELET COUNT 279 10^3/uL (150-400)
[2017-12-25 12:04] LABS: INR 0.98 (0.83-1.16); PROTIME(PATIENT) 13.2 SEC (12.0-15.0)
--- NOTE | 2017-12-25 16:26 | ECHO ---
[email or web address] [address] [address] Main: [phone] Fax: Transthoracic Echocardiogram Name: SUMA ESPINOZA MR#: [id number] Study Date: 12/25/2017 Study Time: 12:21 PM Date of : 1995 Age: 22 year(s) Height: 172.7 cm (68 in.) Weight: 72.58 kg (160 lb.) BSA: 1.86 m2 Gender: Female Examination: Echo Indication: AV Repair Image Quality: Adequate Contrast: Requested by: Sylvester Macdonald BP: / Heart Rate: Rhythm: Indication: AV Repair Procedure Staff Pbx Operator: Zahra Wheeler [facility] Reading Physician: Vitaly Domínguez MD Requesting Provider: Conclusions: Normal size left ventricle. EF is 58 %. No regional wall motion abnormality. Normal diastolic LV function. Mild mitral valve regurgitation is present. Bicuspid aortic valve. Mild aortic valve regurgitation is present. Moderate noncalcific aortic stenosis is present. Peak and mean aortic valve gradients of 48 mmHg and 32 mmHg respectively. Compared to 04/26/2017, the aortic valve peak and mean gradients have decreased (previously 67 and 40 mmHg). In the interim, the patient had an additional aortic valve procedure at [facility] in July of 2017. Measurements: Chambers Valvular Assessment AV/MV Valvular Assessment TV/PV Normal Normal Normal Name Value Range Name Value Range Name Value Range Ao Bhumika (2D): 2.7 cm (1.4 cm-2.6 AV Vmax: 3.46 m/s (1 m/s-1.7 PV Vmax: 0.75 m/s (0.6 m/s-0.9 cm) m/s) m/s) IVSd (2D): 1.1 cm (0.6 cm-1.1 AV maxP mmHg ( - ) PV PGmax: 2 mmHg ( - ) cm) AV meanP mmHg ( - ) LVDd (2D): 3.8 cm (3.9 cm-5.3 FIONA (VTI): 0.8 cm ( - ) cm) MV E Vmax: 0.84 m/s ( - ) LVDs (2D): 2.4 cm (2.1 cm-4 MV A Vmax: 0.73 m/s ( - ) cm) MV E/A: 1.15 ( - ) LVPWd (2D): 1.1 cm ( - ) MV PHT: 0.074 s ( - ) LVOTd 1.9 cm 1.9 cm mm MVA (PHT): 3.0 s ( - ) LVEF (BP): 58 % (>=55 %) RVDd(2D): 2.9 cm (1.9 cm-3.8 cmmm) Patient: SUMA ESPINOZA Study Date: 12/25/2017 Page 1 of 2 12:21 PM Continued Measurements: Chambers Valvular Assessment AV/MV Name Value Name Value LADs: 2.5 cm MV DecTime: 261 m/s LADs Lon.5 cm MV E' Septal: 0.07 m/s LA Area: 10.6 cm2 MV E/E' Septal: 11.70 LA Volume: 26 ml MV E/E' Lateral: 7.60 LA Volume Index: 14.0 ml/m2 RA Area: 11.5 cm2 Additional Vessels Name Value Ao Ascendin.3 cm Inferior Vena Cava: 1.3 cm Findings: Left Ventricle: Normal size left ventricle. Borderline concentric LV hypertrophy. Normal global systolic LV function. EF is 58 %. No regional wall motion abnormality. Normal diastolic LV function. Right Ventricle: Normal size right ventricle. Normal RV function. Left Atrium: The left atrium is normal in size. Right Atrium: The right atrium is normal in size. Mitral Valve: The mitral valve is normal in appearance. Mild mitral valve regurgitation is present. No mitral stenosis is present. Aortic Valve: Bicuspid aortic valve. Mild aortic valve regurgitation is present. Mean aortic valve gradient 32. Moderate noncalcific aortic stenosis is present. Patient states history of bicuspid aortic valve. There were three open heart surgery procedures throughout the patient's life. There was one open heart performed at 2 days old and one performed at 10 days old. At age 18 a balloon annuloplasty was performed. The third surgery was performed in July 2017, which involved an aortic valve repair. Tricuspid Valve: The tricuspid valve is normal in appearance and function. Mild tricuspid regurgitation is present. Pulmonic Valve: The pulmonic valve is normal in appearance and function. Aorta: The aorta is normal. Normal size aortic root measuring 2.7 cm. Normal size ascending aorta measuring 2.3 cm. IVC: The IVC is normal sized. Pericardium: No pericardial effusion. No pleural effusion. (No Signature Object) Patient: SUMA ESPINOZA Study Date: 12/25/2017 Page 2 of 2 12:21 PM [id number]
== END ==
LOC: FCP 11:18
PROVIDERS: ATTEND Internal Medicine
DX: I08.3 Combined rheumatic disorders of mitral, aortic and tricuspid valves (principal); Q25.1 Coarctation of aorta; Z98.890 Other specified postprocedural states; Z95.2 Presence of prosthetic heart valve